=== PATIENT | male | born 1995 | race African-American/Black ===

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

== ENCOUNTER 2017-07-28 20:12 | Emergency (ER) | payer BC, OTHER ==
[~2017-07-28] VITALS: Ht 162.6 cm; Wt 62.2 kg
[2017-07-28 20:32] VITALS: BP 125/76
[2017-07-28 20:55] LABS: ALBUMIN 3.9 g/dL (3.2-4.8)
[2017-07-28 20:56] LABS: CHLORIDE 110 mEq/L (99-109); SODIUM 140 mEq/L (136-147)
[2017-07-28 20:58] LABS: GLUCOSE 88 mg/dL (70-99); HEMATOCRIT 31.2 % (38.0-50.0); MCH 17.9 PG (29.0-34.0); MCHC 28.8 G/DL (30.0-36.0); PLATELET COUNT 443 K/uL (156-360); RBC DIS.WIDTH-CV 18.7 % (11.8-14.6); RBC DIS.WIDTH-SD 39.9 % (39-53); RED BLOOD COUNT 5.03 M/uL (4.00-5.50); TOTAL PROTEIN 8.4 g/dL (6.4-8.3); WHITE BLOOD COUNT 19.4 K/uL (4.1-10.2)
[2017-07-28 21:00] LABS: TOTAL BILIRUBIN 0.1 mg/dL (0.0-1.0)
[2017-07-28 21:01] LABS: ALKALINE PHOSPHATASE 99 IU/L (3-129)
[2017-07-28 21:02] LABS: CREATININE 0.8 mg/dL (0.6-1.3); GFR ESTIMATE (CALCULATED) > 59 mL/min/ (58.99-99999)
[2017-07-28 21:03] LABS: AST (GOT) 15 IU/L (2-34); UREA NITROGEN (BUN) 9 mg/dL (9-23)
[2017-07-28 21:04] LABS: ALT (GPT) 22 IU/L (3-49)
== END 2017-07-28 22:12 | disposition left against medical advice (07) ==
LOC: RME 20:12 → EME 20:12 → RME 22:12
DX: R10.9 Unspecified abdominal pain (principal); Z53.21 Procedure and treatment not carried out due to patient leaving prior to being seen by health care provider
CPT/HCPCS: 80053; 81003; 85027; 99281; 99284